=== PATIENT | female | born 1965 | race Two or more races ===

== ENCOUNTER 2020-03-07 17:37 | Emergency (ER) | payer MEDICAID ==
[~2020-03-07] VITALS: Ht 154.9 cm; Wt 68.5 kg
[2020-03-07 20:43] VITALS: BP 154/83
[2020-03-07] MEDS ORDERED: TETANUS-DIPTH-ACEL PERTUSSIS 0.5ML SYR Tdap IM ONE (21:15)
== END 2020-03-07 21:33 | disposition home or self-care (01) ==
LOC: ER 17:37
DX: S61.102A Unspecified open wound of left thumb with damage to nail, initial encounter (principal); X58.XXXA Exposure to other specified factors, initial encounter; Y93.89 Activity, other specified; Y92.89 Other specified places as the place of occurrence of the external cause; Y99.8 Other external cause status
CPT/HCPCS: 11730; 90471; 90715